=== PATIENT | male | born 1965 | race Caucasian/White ===

== ENCOUNTER 2021-08-01 14:49 | Emergency (ER) | payer SELFPAY | END 2021-08-01 17:10 | disposition home or self-care (01) | LOC: VM.ED 14:49 | DX: K04.7 Periapical abscess without sinus (principal); Z79.899 Other long term (current) drug therapy | CPT/HCPCS: 99283 ==

== ENCOUNTER 2021-08-04 21:12 | Observation (INO) | payer SELFPAY ==
[2021-08-04] MEDS ORDERED: Sodium Chloride 0.9% 10 ML Syringe FLUSH PRN (21:29)
[2021-08-04] MEDS ORDERED: Acetaminophen/HYDROcodone 325-5 MG Tab PO ONE (21:50)
[2021-08-04] MEDS ORDERED: Piperacillin/Tazobactam 3.375 GM in Sodium Chloride 0.9% 100 ML IV ONE (21:53)
[2021-08-04] MEDS ORDERED: Ondansetron 4 MG/2 ML SDV IVPUSH ONE (21:54)
[2021-08-04] MEDS ORDERED: Lactated Ringers 1,000 ML IV ONE (21:54)
[2021-08-04 22:03] LABS: PTT,PARTIAL THROMBOPLSTIN TIME 27.2 SEC (20.5-30.9)
[2021-08-04 22:14] LABS: CHLORIDE,CL 106 mmol/L (98-107); SODIUM,NA 143 mmol/L (136-145)
[2021-08-04 22:17] LABS: ANION GAP 15.6 mmol/L (5-15)
[2021-08-04] MEDS ORDERED: NS with KCl 40mEq 1,000 ML IV SCH (22:30)
[2021-08-04] MEDS ORDERED: Iopamidol 755 Mg/ML 100 ML Bottle IVPUSH ONE (22:50)
[2021-08-05] MEDS ORDERED: Acetaminophen/HYDROcodone 325-5 MG Tab PO PRN (01:49)
[2021-08-05] MEDS ORDERED: Ondansetron 4 MG/2 ML SDV IVPUSH PRN (01:50)
[2021-08-05] MEDS ORDERED: D5 1/2 NS w/ 20 mEq/L KCl 1,000 ML IV SCH (02:00)
[2021-08-05] MEDS ORDERED: Piperacillin/Tazobactam 3.375 GM in Sodium Chloride 0.9% 100 ML IV SCH (06:00)
[2021-08-05 07:08] LABS: CHLORIDE,CL 107 mmol/L (98-107); SODIUM,NA 142 mmol/L (136-145)
[2021-08-05 07:10] LABS: ANION GAP 14.3 mmol/L (5-15)
== END 2021-08-05 10:04 | disposition short-term general hospital (02) ==
LOC: VM.ED 21:12 → VM.MS 08-05 00:50
PROVIDERS: ADMIT Physician Assistant; ATTEND Physician Assistant
DX: K04.7 Periapical abscess without sinus (principal); L03.211 Cellulitis of face; E87.6 Hypokalemia; Z79.899 Other long term (current) drug therapy
CPT/HCPCS: 36415; 70491; 80048; 80053; 83605; 83735; 84100; 84484; 85025; 85610; 85730; 86140; 87040; 93005; 93010; 99220; A9270-GY; J2405; J2543; J3480; J7120; Q9967

== ENCOUNTER 2022-01-15 22:52 | Emergency (ER) | payer SELFPAY ==
[2022-01-16] MEDS: Take Home: Acetaminophen/HYDROcodone 325-10 MG, 5 Tab Pack PO ONE (00:49)
== END 2022-01-16 01:26 | disposition home or self-care (01) ==
LOC: VM.ED 22:52
DX: M54.9 Dorsalgia, unspecified (principal); W01.10XA Fall on same level from slipping, tripping and stumbling with subsequent striking against unspecified object, initial encounter
CPT/HCPCS: 71046; 71100; 99284; A9270

== ENCOUNTER 2023-09-23 23:21 | Emergency (ER) | payer OTHER ==
[2023-09-23] MEDS ORDERED: Amoxicillin 875 MG Tab PO ONE (23:31)
[2023-09-23] MEDS ORDERED: Ketorolac 30 MG/ML SDV IM ONE (23:31)
== END 2023-09-23 23:45 | disposition home or self-care (01) ==
LOC: VM.ED 23:21
DX: K04.7 Periapical abscess without sinus (principal)
CPT/HCPCS: 96372; 99282; 99283; A9270; J1885